=== PATIENT | female | born 1950 | race Caucasian/White ===

== ENCOUNTER → 2019-10-22 | Outpatient (CLI) | payer MEDICARE ==
[2019-10-22 09:24] LABS: ALANINE AMINOTRANSFERASE 27 U/L (12-78); ALBUMIN 3.9 g/dL (3.4-5.0); ANION GAP 4 mmol/L (5-15); CHLORIDE 109 mmol/L (98-107); CHOLESTEROL, TOTAL 224 mg/dL (140-239); CREATININE 0.81 mg/dL (0.55-1.02)
[2019-10-22 09:26] LABS: ALKALINE PHOSPHATASE 83 U/L (45-117); BILIRUBIN,TOTAL 0.7 mg/dL (0.2-1.0); CHOL/HDL RATIO 2.7; HDL CHOL % 37 % (28-40); HDL CHOLESTEROL (DIRECT) 83 mg/dL (40-60); LDL CHOLESTEROL,CALCULATED 125 mg/dL (54-169); LDL/HDL RATIO 1.5 (0.5-3.0); TOTAL PROTEIN 7.5 g/dL (6.4-8.2); TRIGLYCERIDES 81 mg/dL (50-200); VLDL CHOLESTEROL 16 mg/dL (0-25)
[2019-10-22 09:39] LABS: CALCIUM 7.9 mg/dL (8.5-10.1)
== END | disposition home or self-care (01) ==
LOC: LAB 08:56
PROVIDERS: ATTEND Internal Medicine Cardiovascular Disease
DX: I10 Essential (primary) hypertension (principal); I48.91 Unspecified atrial fibrillation; J45.909 Unspecified asthma, uncomplicated
CPT/HCPCS: 36415; 80053; 80061

== ENCOUNTER → 2019-11-02 | Outpatient (CLI) | payer MEDICARE | END | disposition home or self-care (01) | LOC: CFH 06:44 | PROVIDERS: ATTEND Internal Medicine Cardiovascular Disease | DX: I34.0 Nonrheumatic mitral (valve) insufficiency (principal); I48.91 Unspecified atrial fibrillation | CPT/HCPCS: 93306 ==